=== PATIENT | male | born 1980 | race Caucasian/White ===

== ENCOUNTER 2020-08-30 11:28 | Emergency (ER) | payer MEDICAID, OTHER ==
--- NOTE | 2020-08-30 11:39 | EDM.PDOC ---
ED HPI GENERAL MEDICAL PROBLEM - General Chief Complaint: Lower Extremity Injury/Pain Stated Complaint: L FOOT INJURY Time Seen by Provider: 08/30/20 11:42 Source of Information: Reports: Patient, Family History Limitations: Reports: No Limitations - History of Present Illness INITIAL COMMENTS - FREE TEXT/NARRATIVE: 39-year-old male presents to the ED for evaluation of injuries to his left ankle and foot that occurred 2 days ago. Patient states on ThursdayAugust 28 he got his left foot and ankle caught between some rocks and suffered a violent twist injury to his ankle. He has been able to partially weight-bear since that time. He has swelling bilateral aspect of his ankle. Also some pain in his lateral foot. No previous injuries to this foot or ankle in the past. Onset: Sudden Onset Date: 08/28/20 Onset Time: 15:00 Duration: Day(s):, Getting Worse Location: Reports: Lower Extremity, Left (Injury primarily to the left ankle and lateral foot.) Quality: Reports: Ache, Throbbing Severity: Moderate Improves with: Reports: Rest (And elevation) Worsens with: Reports: Movement (Weightbearing. ) Context: Reports: Trauma (Violent twist injury to the ankle when it got caught in some rocks 2 days ago.). Denies: Activity, Exercise, Lifting, Sick Contact Associated Symptoms: Reports: No Other Symptoms Treatments [employer]: Reports: Cold Therapy Left Ankle Pain Score (Numeric/FACES): 3 - Related Data Allergies Allergy/AdvReac Type Severity Reaction Status Date / Time diphenhydramine Allergy Hallucinati Verified 08/30/20 11:35 [From Benadryl] ons ibuprofen Allergy Swelling Verified 08/30/20 11:35 Home Meds: Home Meds . [No Known Home Meds] 08/30/20 [History] Past Medical History HEENT History: Reports: Other (See Below) (Glasses) Social & Family History - Living Situation & Occupation Living situation: Reports: Occupation: Employed Review of Systems - Review of Systems Review Of Systems: See Below Constitutional: Reports: No Symptoms Eyes: Reports: Glasses Ears: Reports: No Symptoms Nose: Reports: No Symptoms Mouth/Throat: Reports: No Symptoms Respiratory: Reports: No Symptoms Cardiovascular: Reports: No Symptoms GI/Abdominal: Reports: No Symptoms Genitourinary: Reports: No Symptoms Musculoskeletal: Reports: Leg Pain (Left foot pain left ankle and lower leg pain), Foot Pain Skin: Reports: No Symptoms Neurological: Reports: No Symptoms Psychiatric: Reports: No Symptoms ED EXAM, GENERAL - Physical Exam Exam: See Below Exam Limited By: No Limitations General Appearance: Alert, WD/WN, No Apparent Distress, Other (Temperature is 36.2 degrees. Heart rate 82 in sinus. Respiratory is 18 with O2 sats of 99% room air. BP 157 101.) Eye Exam: Bilateral Eye: Normal Inspection (No scleral icterus or blepharal pallor.), PERRL Respiratory/Chest: No Respiratory Distress, Lungs Clear, Normal Breath Sounds, No Accessory Muscle Use Cardiovascular: Normal Peripheral Pulses, Regular Rate, Rhythm, No Edema, No Gallop, No Murmur, No Rub Peripheral Pulses: 3+: Carotid (L), Carotid (R), Posterior Tibial (L), Posterior Tibial (R), Dorsalis Pedis (L), Dorsalis Pedis (R) Extremities: Other (Examination of her left lower extremity shows marked swelling both medial and lateral aspect of the ankle. The deltoid ligament appears to be intact. He has very limited ability to dorsiflex plantarflex or lauro his ankle. He also has some pain to palpation over the proximal fibular head. He als) Neurological: Alert, Oriented, CN II-XII Intact, Normal Cognition Psychiatric: Normal Affect, Normal Mood Skin Exam: Warm, Dry, Intact, Normal Color, No Rash Course - Vital Signs Last Recorded V/S: Last Vital Signs Temp 36.2 C 08/30/20 11:39 Pulse 82 08/30/20 11:39 Resp 18 08/30/20 11:39 BP 157/101 H 08/30/20 11:39 Pulse Ox 99 08/30/20 11:39 - Orders/Labs/Meds Orders: Active Orders 24 hr Category Date Time Status Foot Comp Min 3V Lt [CR] Stat Exams 08/30/20 11:48 Taken Tibia Fibula Lt [CR] Stat Exams 08/30/20 11:46 Taken Durable Medical Equipment for Discharge [DME for Oth 08/30/20 13:26 Ordered Discharge] [COMM] Stat Meds: Medications Discontinued Medications Generic Name Dose Route Start Last Admin Trade Name Freq PRN Reason Stop Dose Admin Ceftriaxone Sodium 2 gm/ 100 mls @ 200 mls/hr 08/30/20 12:27 08/30/20 13:06 Sodium Chloride IV 08/30/20 12:56 Not Given ONETIME ONE - Radiology Interpretation Free Text/Narrative:: 39-year-old male presents to the ED for evaluation of acute injuries to his left ankle and foot. He states that on the afternoon of August 28 he was walking and got his foot caught in between a bunch of rocks which caused him to have a violent twist injury to his ankle. Subsequently the ankle has swollen both medially and laterally making it very painful to weight-bear. Exam reveals pain over the proximal left fibula. Pain over both medial and lateral ankle. Deltoid tendon appears to be intact. He also has pain on palpation over his metatarsals particularly the fifth metatarsal head. He will therefore have x- rays of his tib-fib. Ankle x3 view and foot x3 view carried out. - Re-Assessments/Exams Free Text/Narrative Re-Assessment/Exam: 08/30/20 12:12 x-rays of the left tib-fib reveal no fractures. Particularly no evidence of fracture of the proximal fibular head. X-rays of the ankle show a normal mortise view with no fractures of the distal tibia or fibula. The dome of the talus appears normal as well. On x-rays of the foot there appears to be an avulsion fracture off the medial cuboid bone. There is a is also an old avulsion fracture of the top of the talus. Plan: Due to the elevated CRP and minimal infiltrate left lower lobe of the lung on x-ray I believe he is developing pneumonia. We will proceed with Rocephin 2 g intravenously. Discussed the findings with the patient. 08/30/20 13:17 radiology report is now available. There is a well-corticated bony density is seen off the dorsal navicular bone combined with mild avulsion fracture. This could possibly be acute second bony density seen off the anterior dorsal talus which could represent an additional small cortical fracture. Bone island is noted within the tibia. Ankle mortise is symmetric. Soft tissue swelling is seen. No additional fractures or bony abnormalities are appreciated. Patient will be placed in a walking boot to support his ankle for the next month. Motrin 6 or milligrams every 6 as needed for pain relief. He will continue to elevate and ice the rest of today. Departure - Departure Time of Disposition: 13:28 Disposition: Home, Self-Care 01 Condition: Fair Clinical Impression: Sprain of calcaneofibular ligament of left ankle, initial encounter Sprain of ankle, deltoid, left Qualifiers: Encounter type: initial encounter Qualified Code(s): S93.422A - Sprain of deltoid ligament of left ankle, initial encounter Avulsion fracture of navicular bone of foot Qualifiers: Encounter type: initial encounter Fracture type: closed Laterality: left Qualified Code(s): S92.252A - Displaced fracture of navicular [scaphoid] of left foot, initial encounter for closed fracture Avulsion fracture of talus Qualifiers: Encounter type: initial encounter Fracture type: closed - Discharge Information *PRESCRIPTION DRUG MONITORING PROGRAM REVIEWED*: Not Applicable Instructions: Ankle Sprain, Phase I Rehab-SportsMed, Ankle Sprain, [id number], Tarsal Navicular Fracture Referrals: PCP,Not In Area [Primary Care Provider] - Forms: ED Department Discharge Additional Instructions: Evaluation in the emergency room today in regards to injuries to the left lower extremity that occurred a day and a half ago when your foot became entangled in some rocks causing a twist injury to your ankle primarily. Examination reveals marked swelling of both the outer or lateral and also the medial or inner aspect of the ankle indicating both medial and lateral ankle ligament strain. There is bruising occurring around the lateral ankle and foot. Pain also appreciated on examination on the dorsal aspect of the left foot. X-rays of the tib-fib revealed no broken bones in the ankle or the proximal fibular head by your knee. It x-rays of the foot reveal avulsion fractures of the navicular bone and also the dorsal aspect of the talus bone on the top of your foot right where you are very tender. Treatment is walking boot on during the day off at night. I would suggest using the boot for at least 1 month. Motrin 600 mg every 6 hours to reduce pain and inflammation. You could continue to ice the area for 1/2-hour out of every 4 hours today and tomorrow to help reduce the swelling. I would suggest follow-up with Dr. Hoff orthopedic surgeon here in the hospital in 3 weeks time. Please call his office at [phone] to arrange a follow-up appointment. Sepsis Event Note (ED) - Focused Exam Vital Signs: Vital Signs Temp Pulse Resp BP Pulse Ox 08/30/20 11:39 36.2 C 82 18 157/101 H 99 - My Orders Last 24 Hours: My Active Orders 08/30/20 11:46 Tibia Fibula Lt [CR] Stat 08/30/20 11:48 Foot Comp Min 3V Lt [CR] Stat 08/30/20 13:26 Durable Medical Equipment for Discharge [DME for Discharge] [COMM] Stat - Assessment/Plan Last 24 Hours: My Active Orders 08/30/20 11:46 Tibia Fibula Lt [CR] Stat 08/30/20 11:48 Foot Comp Min 3V Lt [CR] Stat 08/30/20 13:26 Durable Medical Equipment for Discharge [DME for Discharge] [COMM] Stat
[2020-08-30] MEDS ORDERED: cefTRIAXone 2 GM in Sodium Chloride 0.9% 100 ML IV ONE (12:27)
--- NOTE | 2020-08-30 13:06 | CR ---
Left ankle: 4 views of the left ankle were obtained. Comparison: No prior ankle study is available. Well-corticated bony density is seen off the dorsal navicular bone compatible with mild avulsion fracture. This could possibly be acute. Second bony density is seen off the anterior and dorsal talus which could represent an additional small cortical fracture. Bone island is noted within the tibia. Ankle mortise is symmetric. Soft tissue swelling is seen. No additional fracture or other bony abnormality is appreciated. Impression: 1. Small bony densities off the dorsal navicular bone and anterior and dorsal talus. Findings are suspicious for small cortical avulsion fractures which could possibly be acute. 2. Soft tissue swelling and other incidental findings as noted above. Diagnostic code #3
--- NOTE | 2020-08-30 13:47 | CR ---
Left foot: 4 views of the left foot were obtained. Comparison: No prior foot exam. Findings suspicious for small cortical avulsion fractures off the anterior and dorsal talus and dorsal navicular bone. Soft tissue swelling noted within the dorsum of the foot. Two small bony densities are noted around the articulation of the calcaneal cuboid joint laterally which could represent additional avulsion injuries. No additional osseous abnormality is appreciated. Impression: 1. Findings suspicious for small cortical avulsion fractures of the anterior and dorsal talus and dorsal navicular bone as well as 2 additional probable acute fractures around the articulation of the calcaneal and cuboid joint. 2. Soft tissue swelling. Diagnostic code #3
--- NOTE | 2020-08-30 13:48 | CR ---
Left tibia and fibula: AP and lateral views of the left tibia and fibula. Small cortical foot fractures are noted as described on foot and ankle studies. Soft tissue swelling is noted around the ankle. No additional abnormality is appreciated within the tibia or fibula. Impression: 1. Previous cortical foot fractures are noted. Soft tissue swelling around the ankle. 2. No abnormality is seen within the left tibia or fibula. Diagnostic code #2
== END 2020-08-30 14:03 | disposition home or self-care (01) ==
LOC: JD.ED 11:28
DX: S92.252A Displaced fracture of navicular [scaphoid] of left foot, initial encounter for closed fracture (principal); S92.192A Other fracture of left talus, initial encounter for closed fracture; Z88.6 Allergy status to analgesic agent; Z88.8 Allergy status to other drugs, medicaments and biological substances; X50.1XXA Overexertion from prolonged static or awkward postures, initial encounter
CPT/HCPCS: 73590-26-LT; 73590-LT; 73610-26-LT; 73610-LT; 73630-26-LT; 73630-LT; 99283-25; 99284